=== PATIENT | female | born 1950 | race Caucasian/White ===

== ENCOUNTER 2016-02-21 11:53 | Inpatient (IN) | payer MEDICARE, OTHER ==
[2016-02-21] MEDS ORDERED: IPRATROPIUM-ALBUTEROL 3 ML NEB INHALATION STA (12:08)
[2016-02-21] MEDS ORDERED: SODIUM CHLORIDE 0.9% 1,000 ML IV STA (12:08)
--- NOTE | 2016-02-21 12:26 | ED ---
General Adult HPI - General Chief complaint: Shortness of Breath Stated complaint: COUGH, FAST SHALLOW BREATHING Time Seen by Provider: 02/21/16 12:07 Source: family, RN notes reviewed, old records reviewed Mode of arrival: ambulatory Limitations: physical limitation - History of Present Illness Initial comments: This is a 65-year-old female the ER for evaluation. Patient's poor historian secondary to underlying mental status with nonspeaking. Patient's brought in by caregiver for evaluation of breathing, patient does not seem to be breathing per normal. History is obtained from caregiver and patient's chart - Related Data Home Medications Medication Instructions Recorded Confirmed Loratadine [Claritin] 10 mg PO DAILY@0800 02/19/14 02/21/16 Omeprazole [PriLOSEC] 20 mg PO AC-BRKFST 02/19/14 02/21/16 QUEtiapine [SEROquel] 200 mg PO BID@1200,1600 02/19/14 02/21/16 QUEtiapine [SEROquel] 400 mg PO HS 02/19/14 02/21/16 Theratab (Multivitamin) 1 tab PO DAILY@0800 02/19/14 02/21/16 Atorvastatin [Lipitor] 20 mg PO HS 02/21/16 02/21/16 Cholecalciferol [Vitamin D3] 1,000 unit PO DAILY@0800 02/21/16 02/21/16 Gavilax Powder 17 gram PO DAILY@1200 02/21/16 02/21/16 L.acidoph,Paracasei, B.lactis 2 cap PO DAILY@1200 02/21/16 02/21/16 [Probiotic] LORazepam [Ativan] 0.5 mg PO BID@0800,1600 02/21/16 02/21/16 LORazepam [Ativan] 0.5 mg PO HS 02/21/16 02/21/16 Levothyroxine Sodium [Synthroid] 25 mcg PO DAILY@0700 02/21/16 02/21/16 Linaclotide [Linzess] 145 mcg PO DAILY@0800 02/21/16 02/21/16 [place] Carbonate 150 mg PO HS 02/21/16 02/21/16 [place] Carbonate 300 mg PO QA 02/21/16 02/21/16 Metoprolol Succinate [Toprol XL] 50 mg PO DAILY@0800 02/21/16 02/21/16 Montelukast [Singulair] 10 mg PO DAILY@1600 02/21/16 02/21/16 OXcarbazepine [Trileptal] 900 mg PO BID 02/21/16 02/21/16 Renal Caps 1 cap PO DAILY@0700 02/21/16 02/21/16 Allergies Allergy/AdvReac Type Severity Reaction Status Date / Time lamotrigine [From Lamictal] Allergy Unknown Verified 02/21/16 13:48 amoxicillin trihydrate AdvReac Unknown Verified 02/21/16 13:48 [From Augmentin] benztropine mesylate AdvReac Unknown Verified 02/21/16 13:48 [From Cogentin] levofloxacin [From Levaquin] AdvReac Unknown Verified 02/21/16 13:48 potassium clavulanate AdvReac Unknown Verified 02/21/16 13:48 [From Augmentin] Review of Systems ROS Statement: Those systems with pertinent positive or pertinent negative responses have been documented in the HPI. ROS Other: All systems not noted in ROS Statement are negative. Past Medical History Past Medical History: GERD/Reflux, Hypertension, Seizure Disorder Additional Past Medical History / Comment(s): prolapsed rectum, kidney stone, frequent ear infections, bowel obstructions, pancreatitis, scarlet fever, tardive dyskinesia History of Any Multi-Drug Resistant Organisms: None Reported Past Surgical History: Bladder Surgery, Bowel Resection, Cholecystectomy Past Psychological History: No Psychological Hx Reported, Bipolar, Schizoaffective Disorder Smoking Status: Never smoker Past Alcohol Use History: None Reported Past Drug Use History: None Reported General Exam Limitations: physical limitation Course Vital Signs 02/21/16 12:00 Temperature 97.3 F L Pulse Rate 95 Respiratory 28 H Rate Blood Pressure 133/64 O2 Sat by Pulse 93 L Oximetry - Reevaluation(s) Reevaluation #1: 02/21/16 13:58 Patient is difficult to cooperate with breathing treatments secondary to mental status Reevaluation #2: 02/21/16 13:58 The patient remains tachypneic short of breath with positive pneumonia on x-ray EKG Findings - EKG Comments: EKG Findings:: EKG shows normal sinus rhythm 94, PA 168, QRS 80, QTC 450 Medical Decision Making - Medical Decision Making 65-year-old female to ER for evaluation. This patient is safe for evaluation of shortness of breath cough and congestion, positive pneumonia or patient will be admitted for further evaluation and treatment of pneumonia, breathing treatments, IV antibiotics, patient is poorly compliant secondary to underlying altered mental status, developed mild lower - Radiology Data Radiology results: report reviewed (Chest x-ray two-view is positive for pneumonia), image reviewed Disposition Clinical Impression: Community acquired pneumonia Disposition: ADMITTED IP TO [facility] Condition: Fair Referrals: Terrell Romero MD [Primary Care Provider] - 1-2 days
--- NOTE | 2016-02-21 13:54 | XR ---
EXAMINATION TYPE: XR chest 2V DATE OF EXAM: 02/21/2016 1:41 PM COMPARISON: 05/28/2013 INDICATION: Difficulty breathing TECHNIQUE: Frontal and lateral views of the chest are obtained. FINDINGS: The heart size is normal. The pulmonary vasculature is normal. There is a right lower lobe consolidation. Correlate for pneumonia. IMPRESSION: 1. Right lower lobe pneumonia.
[2016-02-21] MEDS ORDERED: PNEUMONIA PROTOCOL UTILIZED 1 EACH MISC PO PRN (13:56)
[2016-02-21] MEDS ORDERED: AZITHROMYCIN 500 MG in SODIUM CHLORIDE 0.9% 250 ML IVPB STA (13:57)
[2016-02-21 15:26] LABS: ALT 34 U/L (9-52); AST 28 U/L (14-36); Alkaline Phosphatase 134 U/L (38-126); Anion Gap 13 mmol/L; Blood Urea Nitrogen 33 mg/dL (7-17); Calcium 10.1 mg/dL (8.4-10.2); Carbon Dioxide 21 mmol/L (22-30); Chloride 104 mmol/L (98-107); Glucose 114 mg/dL (74-99); INR 1.1 (<1.1); Magnesium 1.9 mg/dL (1.6-2.3); Non-African American GFR(MDRD) 55 (>60 ml/min/1.73 sqM); Partial Thromboplastin Time 26.1 sec (22.0-30.0); Potassium 4.4 mmol/L (3.5-5.1); Sodium 138 mmol/L (137-145); Total Bilirubin 0.4 mg/dL (0.2-1.3); Total Protein 6.7 g/dL (6.3-8.2)
[2016-02-21 15:30] LABS: CH 30.6; CHCM 33.1; HCT 38.5 % (34.0-46.0); HDW 2.49; HGB 12.5 gm/dL (11.4-16.0); Immature Gran Flag Marked; MCHC 32.4 g/dL (31.0-37.0); MCV 92.8 fL (80.0-100.0); Mean Platelet Volume 7.2; RBC 4.15 m/uL (3.80-5.40); RDW 12.7 % (11.5-15.5); WBC (Perox) 11.47
[2016-02-21 15:36] LABS: Creatine Kinase 145 U/L (30-135)
[2016-02-21 15:49] LABS: Troponin I <0.012 ng/mL (0.000-0.034)
[2016-02-21 15:53] LABS: Creatine Kinase MB 2.5 ng/mL (0.0-2.4)
[2016-02-21 16:05] LABS: Add Differential Manual Differential
[2016-02-21 16:08] LABS: Nucleated Red Blood Cells 0 /100 WBC (0-0); Total Cells Counted 100
[2016-02-21] MEDS: IPRATROPIUM-ALBUTEROL 3 ML NEB INHALATION SCH ×2 (16:08→19:24)
[2016-02-21 16:09] LABS: Manual Review Performed; RBC Morphology Normal
[2016-02-21] MEDS ORDERED: SODIUM CHLORIDE 0.9% 500 ML IV ONE (16:13)
[2016-02-21] MEDS ORDERED: ACETAMINOPHEN TAB 500 MG TAB PO STA (16:21)
[2016-02-21] MEDS ORDERED: IBUPROFEN 600 MG TAB PO STA (16:21)
[2016-02-21] MEDS: AZITHROMYCIN 500 MG TAB PO STA ×2 (16:31→16:32)
[2016-02-21] MEDS: SODIUM CHLORIDE 0.9% 2,000 ML IV ONE ×2 (17:01→17:48)
[2016-02-21] MEDS: SODIUM CHLORIDE 0.9% 1,000 ML IV SCH ×2 (17:43→23:46)
[2016-02-21] MEDS ORDERED: LORazepam 0.5 MG TAB PO ONE (19:45)
[2016-02-21] MEDS: ATORVASTATIN 20 MG TAB PO SCH (20:33)
[2016-02-21] MEDS: QUEtiapine 400 MG TAB PO SCH (20:33)
[2016-02-21] MEDS: OXcarbazepine 300 MG TAB PO SCH (20:34)
[2016-02-21] MEDS: LITHIUM CARBONATE 150 MG CAP PO SCH (20:34)
[2016-02-21] MEDS: LORazepam 0.5 MG TAB PO SCH (20:36)
--- NOTE | 2016-02-22 07:43 | XR ---
EXAMINATION TYPE: XR chest 2V DATE OF EXAM: 02/22/2016 7:19 AM COMPARISON: 02/21/2016 HISTORY: Shortness of breath TECHNIQUE: Frontal and lateral views of the chest are obtained. FINDINGS: Scattered senescent parenchymal changes noted. Hyperinflation compatible with COPD. Airspace infiltrate is again noted throughout the right lung greatest at the right lung base. The lef t lung is clear. Heart size is stable. Mediastinal structures are stable and grossly unremarkable. No evidence for hilar prominence. Degenerative changes dorsal spine. IMPRESSION: 1. Airspace infiltrate is again noted throughout the right lung greatest at the right lung base.
--- NOTE | 2016-02-22 08:02 | HP ---
DATE OF ADMISSION: 02/21/2016 PRESENTING COMPLAINT: Short of breath. HISTORY OF PRESENTING COMPLAINT: This is a 65-year-old patient with rather extensive medical history that includes GERD, hypertension, seizure disorder, prolapsed rectum, kidney stones. These are all stable. The patient also has got bipolar schizoaffective disorder and autism. Patient at the age of 1 had high fever, and measles and then patient stopped speaking. Since then, the patient was a resident of [facility]. Patient presented with shortness of breath found to have a fever, pneumonia, was hypoxic in the ER admitted for the same. Like said, patient ( ) not able to give any history. Review of systems cannot be done as patient cannot speak. PAST MEDICAL HISTORY: GERD, hypertension, seizure disorder, prolapsed rectum, kidney stones, bowel obstruction in the past, pancreatitis, tardive dyskinesia. PAST SURGICAL HISTORY: Bladder surgery, bowel resection, cholecystectomy. Past psych history is schizoaffective disorder, bipolar, autism. Additional past medical history, the patient had high fever and measles at age of 1 after which patient stopped speaking. SOCIAL HISTORY: Patient got a retirement called [employer], telephone number [phone]. Patient is normally needs to be supervised. No smoking. FAMILY HISTORY: Patient cannot tell. HOME MEDICATIONS: 1. Multivitamin 1 tablet p.o. daily at 8. 2. Renal caps 1 capsule p.o. daily. 3. Seroquel 400 mg q.h.s. 4. Seroquel 200 mg p.o. b.i.d. 5. Prilosec 20 mg with breakfast. 6. Trileptal 900 mg p.o. b.i.d. 7. Singulair 10 mg p.o. daily at 4 p.m. 8. Toprol XL 50 mg at 8:00 p.m. 9. Claritin 10 mg p.o. daily at 8 a.m. 10. Valmy 150 mg q.h.s., 300 mg in morning. 11. Linzess 145 mcg p.o. daily. 12. Synthroid 25 mcg p.o. daily. 13. Ativan 0.5 p.o. b.i.d. and 0.5 mg p.o. q.h.s. 14. Probiotic 2 capsules p.o. daily. 15. GaviLAX 17 grams p.o. daily at noon. 16. Vitamin D3,1000 units p.o. daily. 17. Lipitor 20 mg q.h.s. Allergies to LAMICTAL, AUGMENTIN, COGENTIN and LEVAQUIN. On examination T-max is 101.6, pulse 105, respirations 20, blood pressure 141/64, pulse ox 89% on room air. GENERAL APPEARANCE: Average built, lying in bed, not in distress. EYES: Pupils equal. Conjunctivae normal. HENT: External appearance of nose and ears normal. Oral cavity unable. NECK: JVD not raised. Mass not palpable. RESPIRATORY: Effort normal. LUNGS: Some basal crackles. CARDIOVASCULAR: First and second sounds normal. No edema. ABDOMEN: Soft, nontender. Liver and spleen not palpable. LYMPHATIC: No lymph node palpable in neck or axillae. PSYCHIATRY: Unable to assess. NEUROLOGICAL: Patient is moving all 4 limbs, not sure if patient is really following commands. White count 11, hemoglobin 12.5. Potassium 4.4. BUN 33, creatinine 1.0. Troponin less than 0.012. ProBNP 563. Chest x-ray reviewed by me shows extensive infiltrates upper right middle lobe. ASSESSMENT: 1. Multilobar pneumonia, suspect gram-negative organism, present on admission. 2. Gastroesophageal reflux disease. 3. Hypertension. 4. Seizure disorder. 5. Kidney stones, asymptomatic. 6. Schizoaffective disorder PLAN: The patient is started on IV ceftriaxone and Zithromax. Home medications are resumed. Lovenox for DVT prophylaxis. Given previous history will get a sitter for the patient.
[2016-02-22] MEDS: IPRATROPIUM-ALBUTEROL 3 ML NEB INHALATION SCH ×4 (08:15→19:30)
[2016-02-22] MEDS: PANTOPRAZOLE 40 MG TABLET PO SCH (08:18)
[2016-02-22] MEDS: LITHIUM CARBONATE 300 MG CAP PO SCH (08:18)
[2016-02-22] MEDS: OXcarbazepine 300 MG TAB PO SCH ×2 (08:18→21:56)
[2016-02-22] MEDS: LEVOTHYROXINE 25 MCG TAB PO SCH (08:18)
[2016-02-22] MEDS: METOPROLOL SUCCINATE (ER) 50 MG TAB.ER.24H PO SCH (08:18)
[2016-02-22] MEDS: ENOXAPARIN 40 MG/0.4 ML SYRINGE SQ SCH (08:18)
[2016-02-22] MEDS: MULTIVITAMINS, THERA 1 EACH TAB PO SCH (08:18)
[2016-02-22] MEDS: LORazepam 0.5 MG TAB PO SCH ×3 (08:19→21:58)
[2016-02-22] MEDS: FOLIC ACID-VIT B COMPLEX-VIT C 1 CAP PO SCH (08:19)
[2016-02-22] MEDS: QUEtiapine 200 MG TAB PO SCH ×2 (12:12→17:19)
[2016-02-22] MEDS: POLYETHYLENE GLYCOL 3350 17 GM POWD.PACK PO SCH (12:12)
[2016-02-22] MEDS: SODIUM CHLORIDE 0.9% 1,000 ML IV SCH ×2 (14:48→20:30)
[2016-02-22] MEDS ORDERED: cefTRIAXone 1,000 MG in SODIUM CHLORIDE 0.9% 100 ML IVPB SCH (15:00)
[2016-02-22] MEDS ORDERED: AZITHROMYCIN 500 MG in SODIUM CHLORIDE 0.9% 250 ML IVPB SCH (16:00)
[2016-02-22] MEDS: MONTELUKAST 10 MG TAB PO SCH (17:19)
--- NOTE | 2016-02-22 17:49 | PN ---
DATE OF SERVICE: 02/22/2016 PRESENTING COMPLAINT: Short of breath. INTERVAL HISTORY: This patient with multiple problems presents with multilobar pneumonia, lying in bed, appears a bit better, has a sitter. Patient did tolerate some breakfast. Patient also not able to communicate. Review of systems cannot be done as patient currently does not speak. Current medications are reviewed that include IV ceftriaxone and Zithromax. On exam, temperature 97.9, pulse 101, respirations 21, blood pressure 120/58, pulse ox 90% on room air. GENERAL APPEARANCE: Lying in bed, awake. EYES: Pupils equal normal. NECK: JVD not raised. Mass not palpable. RESPIRATORY: Effort normal. LUNGS: Some basal crackles. CARDIOVASCULAR: First and second sounds normal. No edema. ABDOMEN: Soft, nontender. Liver and spleen not palpable. NEUROLOGICAL: Moving her limbs. Barely following commands. INVESTIGATIONS: Lactic acid 0.8. ASSESSMENT: 1. Multilobar pneumonia, suspect gram-negative organism, slow to respond with lactic acidosis, on presentation. 2. Gastroesophageal reflux disease. 3. Hypertension. 4. Seizure disorder. 5. Kidney stones asymptomatic. 6. ( ) disorder. 7. Dysarthria, chronic. PLAN: Continue current medication and treatment plan. Will follow.
[2016-02-22] MEDS: LITHIUM CARBONATE 150 MG CAP PO SCH (21:56)
[2016-02-22] MEDS: QUEtiapine 400 MG TAB PO SCH (21:56)
[2016-02-22] MEDS: ATORVASTATIN 20 MG TAB PO SCH (21:56)
[2016-02-23] MEDS: SODIUM CHLORIDE 0.9% 1,000 ML IV SCH (06:39)
[2016-02-23] MEDS: LEVOTHYROXINE 25 MCG TAB PO SCH (06:40)
[2016-02-23] MEDS: FOLIC ACID-VIT B COMPLEX-VIT C 1 CAP PO SCH (06:40)
[2016-02-23] MEDS: PANTOPRAZOLE 40 MG TABLET PO SCH (06:40)
[2016-02-23] MEDS: METOPROLOL SUCCINATE (ER) 50 MG TAB.ER.24H PO SCH (08:02)
[2016-02-23] MEDS: MULTIVITAMINS, THERA 1 EACH TAB PO SCH (08:02)
[2016-02-23] MEDS: LITHIUM CARBONATE 300 MG CAP PO SCH (08:02)
[2016-02-23] MEDS: OXcarbazepine 300 MG TAB PO SCH ×2 (08:02→20:42)
[2016-02-23] MEDS: LORazepam 0.5 MG TAB PO SCH ×3 (08:03→20:42)
[2016-02-23] MEDS: ENOXAPARIN 40 MG/0.4 ML SYRINGE SQ SCH (08:03)
[2016-02-23 08:15] LABS: Basophils % (A) 0 %; CH 30.1; CHCM 31.1; Eosinophils # (A) 0.2 k/uL (0-0.7); Eosinophils % (A) 2 %; HCT 32.6 % (34.0-46.0); HDW 2.51; HGB 10.2 gm/dL (11.4-16.0); Hypochromasia Slight; Luc # (Auto) 0.13; Luc % (Auto) 1; Lymphocytes # (A) 1.1 k/uL (1.0-4.8); Lymphocytes % (A) 11 %; MCH 30.3 pg (25.0-35.0); MCHC 31.2 g/dL (31.0-37.0); MCV 97.2 fL (80.0-100.0); Mean Platelet Volume 7.7; Monocytes # (A) 0.4 k/uL (0-1.0); Monocytes % (A) 4 %; Neutrophils # (A) 8.2 k/uL (1.3-7.7); Neutrophils % (A) 82 %; RBC 3.35 m/uL (3.80-5.40)
[2016-02-23 08:25] LABS: Anion Gap 11 mmol/L; Blood Urea Nitrogen 14 mg/dL (7-17); Carbon Dioxide 15 mmol/L (22-30); Chloride 118 mmol/L (98-107); Glucose 114 mg/dL (74-99); Non-African American GFR(MDRD) >60 (>60 ml/min/1.73 sqM); Potassium 4.4 mmol/L (3.5-5.1); Sodium 144 mmol/L (137-145)
[2016-02-23] MEDS: IPRATROPIUM-ALBUTEROL 3 ML NEB INHALATION SCH ×4 (09:47→21:07)
[2016-02-23] MEDS: QUEtiapine 200 MG TAB PO SCH ×2 (13:01→16:44)
[2016-02-23] MEDS: POLYETHYLENE GLYCOL 3350 17 GM POWD.PACK PO SCH (13:01)
[2016-02-23] MEDS: guaiFENesin 600 MG TABLET.ER PO SCH ×2 (15:43→20:42)
[2016-02-23] MEDS ORDERED: AZITHROMYCIN 500 MG TAB PO SCH (16:00)
[2016-02-23] MEDS: PIPERACILLIN-TAZOBACTAM 3.375 GM in DEXTROSE/WATER 1 50ML.BAG IVPB SCH ×2 (16:43→23:14)
[2016-02-23] MEDS: MONTELUKAST 10 MG TAB PO SCH (16:43)
--- NOTE | 2016-02-23 17:50 | P.CNPUL ---
History of Present Illness Consult date: 02/23/16 Requesting physician: Mario Chamberlain Reason for consult: pneumonia Chief complaint: Shortness of breath History of present illness: this is a 65-year-old female with history of multiple medical problems, patient is known to have history of bipolar disorder, schizoaffective disorder, hypertension, seizure disorder, prolapsed rectum, and since the patient was 1 years old, she developed a picture of severe encephalitis ,the patient went aphasic and has not been able to verbalize since. Patient remains at [facility]. On 02/21/2016, patient was brought into the ER with mostly complaints of shortness of breath. Chest x-ray upon presentation showed extensive pneumonia involving the right lung especially the right lobe and the right lower lobe. No documented history of aspiration but the patient eats and Gobbles food down quite fast normally. considering this presentation, patient is not an ideal risk for aspiration pneumonia. Swallow evaluation is spending, in the meantime patient seems to be on Broad-spectrum antibiotics empirically for pneumonia. Again not much history could be obtained from the patient since the patient is aphasic and she seems to be confused. Review of Systems ROS unobtainable: due to mental status Past Medical History Past Medical History: GERD/Reflux, Hypertension, Seizure Disorder Additional Past Medical History / Comment(s): prolapsed rectum, kidney stone, frequent ear infections, bowel obstructions, pancreatitis, scarlet fever, tardive dyskinesia History of Any Multi-Drug Resistant Organisms: None Reported Past Surgical History: Bladder Surgery, Bowel Resection, Cholecystectomy Past Anesthesia/Blood Transfusion Reactions: No Reported Reaction Past Psychological History: No Psychological Hx Reported, Bipolar, Schizoaffective Disorder Additional Psychological History / Comment(s): autism-per caregiver.pt had hx high fever and measels at age 1,after it subsided pt stopped speaking. PT LIVES AT [facility] [employer] [phone].[facility] staff remain in a close proximity of pt at all times.don't leave unattended in bath or shower.pt places self at risk when she picks at herself or bangs arms on something. Smoking Status: Never smoker Past Alcohol Use History: None Reported Past Drug Use History: None Reported - Past Family History Father Family Medical History: Unable to Obtain Mother Family Medical History: Unable to Obtain Medications and Allergies Home Medications Medication Instructions Recorded Confirmed Type Loratadine [Claritin] 10 mg PO DAILY@0800 02/19/14 02/21/16 History Omeprazole [PriLOSEC] 20 mg PO AC-BRKFST 02/19/14 02/21/16 History QUEtiapine [SEROquel] 200 mg PO BID@1200,1600 02/19/14 02/21/16 History QUEtiapine [SEROquel] 400 mg PO HS 02/19/14 02/21/16 History Theratab (Multivitamin) 1 tab PO DAILY@0800 02/19/14 02/21/16 History Atorvastatin [Lipitor] 20 mg PO HS 02/21/16 02/21/16 History Cholecalciferol [Vitamin D3] 1,000 unit PO DAILY@0800 02/21/16 02/21/16 History Gavilax Powder 17 gram PO DAILY@1200 02/21/16 02/21/16 History L.acidoph,Paracasei, B.lactis 2 cap PO DAILY@1200 02/21/16 02/21/16 History [Probiotic] LORazepam [Ativan] 0.5 mg PO BID@0800,1600 02/21/16 02/21/16 History LORazepam [Ativan] 0.5 mg PO HS 02/21/16 02/21/16 History Levothyroxine Sodium [Synthroid] 25 mcg PO DAILY@0700 02/21/16 02/21/16 History Linaclotide [Linzess] 145 mcg PO DAILY@0800 02/21/16 02/21/16 History [place] Carbonate 150 mg PO HS 02/21/16 02/21/16 History [place] Carbonate 300 mg PO QA 02/21/16 02/21/16 History Metoprolol Succinate [Toprol XL] 50 mg PO DAILY@0800 02/21/16 02/21/16 History Montelukast [Singulair] 10 mg PO DAILY@1600 02/21/16 02/21/16 History OXcarbazepine [Trileptal] 900 mg PO BID 02/21/16 02/21/16 History Renal Caps 1 cap PO DAILY@0700 02/21/16 02/21/16 History Allergies Allergy/AdvReac Type Severity Reaction Status Date / Time lamotrigine [From Lamictal] Allergy Unknown Verified 02/21/16 13:48 amoxicillin trihydrate AdvReac Unknown Verified 02/21/16 13:48 [From Augmentin] benztropine mesylate AdvReac Unknown Verified 02/21/16 13:48 [From Cogentin] levofloxacin [From Levaquin] AdvReac Unknown Verified 02/21/16 13:48 potassium clavulanate AdvReac Unknown Verified 02/21/16 13:48 [From Augmentin] Physical Exam Vitals: Vital Signs Temp Pulse Resp BP Pulse Ox 02/23/16 15:00 95 21 126/67 91 L 02/23/16 07:00 97.2 F L 90 20 133/69 92 L 02/22/16 23:00 97.2 F L 95 20 115/51 92 L Intake and Output 02/23/16 02/23/16 02/23/16 06:59 14:59 22:59 Intake Total 200 Balance 200 Intake: Oral 200 Other: # Voids 1 3 physical examination revealed a 65-year-old female in no distress. HEENT: Neck supple no neck masses no JVD no thyromegaly. Chest: Crackles mostly on the right base, left side is relatively clear Cardiac: Normal S1 and S2, no gallops. Abdomen: Soft nontender thyromegaly no rebound Extremities: No clubbing edema or cyanosis. Neurologic: Patient is awake, confused, aphasic, extremely difficult to communicate with the patient. Results - Laboratory Findings CBC and BMP: 02/23/16 07:46 02/23/16 07:46 PT/INR, D-dimer PT 11.0 sec (9.0-12.0) 02/21/16 14:54 INR 1.1 (<1.1) 02/21/16 14:54 Abnormal lab findings: Abnormal Labs 02/21/16 02/21/16 02/21/16 14:52 14:54 14:54 WBC 11.0 H RBC Hgb Hct Neutrophils # Neutrophils # (Manual) 9.7 H Lymphocytes # (Manual) 0.8 L Chloride Carbon Dioxide 21 L BUN 33 H Glucose 114 H Plasma Lactic Acid Marc 2.2 H* Alkaline Phosphatase 134 H Total Creatine Kinase CK-MB (CK-2) 02/21/16 02/23/16 02/23/16 14:54 07:46 07:46 WBC RBC 3.35 L Hgb 10.2 L Hct 32.6 L Neutrophils # 8.2 H Neutrophils # (Manual) Lymphocytes # (Manual) Chloride 118 H Carbon Dioxide 15 L BUN Glucose 114 H Plasma Lactic Acid Marc Alkaline Phosphatase Total Creatine Kinase 145 H CK-MB (CK-2) 2.5 H* - Diagnostic Findings Chest x-ray: image reviewed ( Extensive pneumonia involving the right lung was noted) Assessment and Plan Plan: impression: 1 acute right lung pneumonia involving mostly the right middle lobe and right lower lobe 2 multiple comorbidities including schizoaffective disorder, seizure disorder, hypertension, GERD, and 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 Recommendation: Continue present course of antibiotics, however the patient failed the swallow evaluation, may have to consider adding clindamycin since the patient is allergic to penicillin and we cannot use Zosyn. Swallow evaluation is pending and will continue to follow. Clinically, the patient seems to be doing better than expected considering the extensive pneumonic process involving the right lung. If the patient shows any signs of deterioration, I would consider bronchoscopy. We will continue to follow Time with Patient: Greater than 30
--- NOTE | 2016-02-23 18:21 | PN ---
DATE OF SERVICE: 02/23/2016 PRESENTING COMPLAINT: Short of breath. INTERVAL HISTORY: Patient presented with multilobar pneumonia. Did tolerate some breakfast. Lying in bed. Patient does not talk; difficult to assess. Otherwise, lying in bed, rather comfortable. Review of systems could not be obtained. Patient does not speak. Current medications include IV ceftriaxone and Zithromax. On examination, temperature 97.2, pulse 90, respiration 20, blood pressure 138/69, pulse ox 92% on room air. GENERAL APPEARANCE: Lying in bed, awake. EYES: Pupils equal. Conjunctivae normal. NECK: JVD not raised. Mass not palpable. RESPIRATORY: Effort increased. LUNGS: Right basal crackles. CARDIOVASCULAR: First and second sounds normal. No edema. ABDOMEN: Soft, non-tender. Liver and spleen not palpable. NEUROLOGICAL: Moving all limbs. Does not speak. INVESTIGATIONS: White count 10, hemoglobin 10.2, potassium 4.4. Chest x-ray from yesterday shows significant infiltrates. ASSESSMENT: 1. Multilobar pneumonia; suspect Gram-negative organism, slow to respond, with lactic acidosis on presentation. 2. Gastroesophageal reflux disease. 3. Hypertension. 4. Seizure disorder. 5. Kidney stones, asymptomatic. 6. Dysarthria, chronic. 7. Schizoaffective disorder. PLAN: At this point will discontinue patient's Zithromax and add Zosyn. Await input from Pulmonary. Will discontinue the IV fluids.
[2016-02-23] MEDS: QUEtiapine 400 MG TAB PO SCH (20:42)
[2016-02-23] MEDS: ATORVASTATIN 20 MG TAB PO SCH (20:42)
[2016-02-23] MEDS: LITHIUM CARBONATE 150 MG CAP PO SCH (20:42)
[2016-02-24] MEDS: NON-FORMULARY DRUG (Linaclotide [Linzess] 145 MCG) PO SCH ×2 (07:28→07:29)
[2016-02-24] MEDS: IPRATROPIUM-ALBUTEROL 3 ML NEB INHALATION SCH ×4 (07:54→19:33)
[2016-02-24] MEDS: OXcarbazepine 300 MG TAB PO SCH ×2 (08:31→22:52)
[2016-02-24] MEDS: LEVOTHYROXINE 25 MCG TAB PO SCH (08:31)
[2016-02-24] MEDS: FOLIC ACID-VIT B COMPLEX-VIT C 1 CAP PO SCH (08:31)
[2016-02-24] MEDS: METOPROLOL SUCCINATE (ER) 50 MG TAB.ER.24H PO SCH (08:33)
[2016-02-24] MEDS: LORazepam 0.5 MG TAB PO SCH ×3 (08:34→22:50)
[2016-02-24] MEDS: MULTIVITAMINS, THERA 1 EACH TAB PO SCH (08:34)
[2016-02-24] MEDS: guaiFENesin 600 MG TABLET.ER PO SCH ×2 (08:34→22:51)
[2016-02-24] MEDS: ENOXAPARIN 40 MG/0.4 ML SYRINGE SQ SCH (08:34)
[2016-02-24] MEDS: PANTOPRAZOLE 40 MG TABLET PO SCH (08:34)
[2016-02-24] MEDS: PIPERACILLIN-TAZOBACTAM 3.375 GM in DEXTROSE/WATER 1 50ML.BAG IVPB SCH ×2 (08:34→17:39)
[2016-02-24] MEDS: LITHIUM CARBONATE 300 MG CAP PO SCH (08:35)
--- NOTE | 2016-02-24 13:02 | P.PN ---
Subjective Principal diagnosis: Acute right sided pneumonia, most likely aspiration in nature. this is a 65-year-old female with history of multiple medical problems, patient is known to have history of bipolar disorder, schizoaffective disorder, hypertension, seizure disorder, prolapsed rectum, and since the patient was 1 years old, she developed a picture of severe encephalitis ,the patient went aphasic and has not been able to verbalize since. Patient remains at [facility]. On 02/21/2016, patient was brought into the ER with mostly complaints of shortness of breath. Chest x-ray upon presentation showed extensive pneumonia involving the right lung especially the right lobe and the right lower lobe. No documented history of aspiration but the patient eats and Gobbles food down quite fast normally. considering this presentation, patient is not an ideal risk for aspiration pneumonia. Swallow evaluation is spending, in the meantime patient seems to be on Broad-spectrum antibiotics empirically for pneumonia. Again not much history could be obtained from the patient since the patient is aphasic and she seems to be confused. Patient was reevaluated today on 02/24/2016, seems to be about the same. No cough no wheezing no shortness of breath, and her physical findings are practically about the same. Patient is being evaluated by speech therapy for swallow evaluation. Results of that are pending. Her labs showed the PEEP cigar of 10 hemoglobin of 10.2 her electrolytes showed a hyperchloremic metabolic acidosis/non-anion gap metabolic acidosis. Objective - Vital Signs Vital signs: Vital Signs Temp 96.9 F L 02/24/16 07:00 Pulse 91 02/24/16 07:00 Resp 20 02/24/16 07:00 BP 135/71 02/24/16 07:00 Pulse Ox 96 02/24/16 07:00 Intake & Output 02/23/16 02/24/16 02/24/16 18:59 06:59 18:59 Intake Total 200 Balance 200 Intake: Oral 200 Other: Voiding Method Toilet # Voids 3 1 - Exam physical examination revealed a 65-year-old female in no distress. HEENT: Neck supple no neck masses no JVD no thyromegaly. Chest: Crackles mostly on the right base, left side is relatively clear Cardiac: Normal S1 and S2, no gallops. Abdomen: Soft nontender thyromegaly no rebound Extremities: No clubbing edema or cyanosis. Neurologic: Patient is awake, confused, aphasic, extremely difficult to communicate with the patient. 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 Recommendation: Continue present course of antibiotics, however the patient failed the swallow evaluation, may have to consider adding clindamycin since the patient is allergic to penicillin and we cannot use Zosyn. Swallow evaluation is pending and will continue to follow. Clinically, the patient seems to be doing better than expected considering the extensive pneumonic process involving the right lung. If the patient shows any signs of deterioration, I would consider bronchoscopy. We will continue to follow Time with Patient: Less than 30
[2016-02-24] MEDS: POLYETHYLENE GLYCOL 3350 17 GM POWD.PACK PO SCH (14:29)
[2016-02-24] MEDS: QUEtiapine 200 MG TAB PO SCH ×2 (14:38→17:36)
[2016-02-24] MEDS: MONTELUKAST 10 MG TAB PO SCH (17:36)
--- NOTE | 2016-02-24 22:45 | PN ---
DATE OF SERVICE: 02/24/2016 PRESENTING COMPLAINT: Cough. INTERVAL HISTORY: Patient presented with multilobar pneumonia; appears a bit less congested. Follows commands but does not really talk. Per the aide, patient is eating all the meals. No major coughing. Review of systems could not be done. Current medications are reviewed that include IV Zosyn. On examination, temperature 98.4, pulse 86, respiration 19, blood pressure 148/78, pulse ox 91% on room air. GENERAL APPEARANCE: Sitting up. Comfortable. EYES: Pupils equal. Conjunctivae normal. NECK: JVD not raised. Mass not palpable. RESPIRATORY: Effort increased. LUNGS: Decreased right-sided crackles. CARDIOVASCULAR: First and second sounds normal. No edema. ABDOMEN: Soft, non-tender. Liver and spleen not palpable. NEUROLOGICAL: Moving all 4 limbs. PSYCHIATRY: Patient does follow commands. INVESTIGATIONS: White count 10, hemoglobin 10.2. Potassium 4.2. BUN and creatinine are normal. ASSESSMENT: 1. Multilobar pneumonia; suspect Gram-negative organism. Slow to respond, with lactic acidosis on presentation. Aspiration is a possibility. 2. Chronic tardive dyskinesia. 3. Gastroesophageal reflux disease. 4. Hypertension. 5. Chronic seizure disorder. 6. Kidney stones, asymptomatic. 7. Dysarthria, chronic. 8. Schizoaffective disorder, chronic. PLAN: Continue current medication and treatment plan. Patient clinically seems to be getting better.
[2016-02-24] MEDS: LITHIUM CARBONATE 150 MG CAP PO SCH (22:51)
[2016-02-24] MEDS: QUEtiapine 400 MG TAB PO SCH (22:51)
[2016-02-24] MEDS: ATORVASTATIN 20 MG TAB PO SCH (22:52)
[2016-02-25] MEDS: PIPERACILLIN-TAZOBACTAM 3.375 GM in DEXTROSE/WATER 1 50ML.BAG IVPB SCH ×3 (01:13→16:22)
[2016-02-25] MEDS: FOLIC ACID-VIT B COMPLEX-VIT C 1 CAP PO SCH (07:51)
[2016-02-25] MEDS: METOPROLOL SUCCINATE (ER) 50 MG TAB.ER.24H PO SCH (07:51)
[2016-02-25] MEDS: MULTIVITAMINS, THERA 1 EACH TAB PO SCH (07:51)
[2016-02-25] MEDS: LEVOTHYROXINE 25 MCG TAB PO SCH (07:51)
[2016-02-25] MEDS: LORazepam 0.5 MG TAB PO SCH ×3 (07:51→20:51)
[2016-02-25] MEDS: ENOXAPARIN 40 MG/0.4 ML SYRINGE SQ SCH (07:51)
[2016-02-25] MEDS: PANTOPRAZOLE 40 MG TABLET PO SCH (07:51)
[2016-02-25] MEDS: LITHIUM CARBONATE 300 MG CAP PO SCH (07:52)
[2016-02-25] MEDS: guaiFENesin 600 MG TABLET.ER PO SCH ×2 (07:52→20:52)
[2016-02-25] MEDS: OXcarbazepine 300 MG TAB PO SCH ×2 (07:53→20:50)
[2016-02-25] MEDS: IPRATROPIUM-ALBUTEROL 3 ML NEB INHALATION SCH ×4 (09:18→20:10)
[2016-02-25] MEDS: POLYETHYLENE GLYCOL 3350 17 GM POWD.PACK PO SCH (12:49)
[2016-02-25] MEDS: QUEtiapine 200 MG TAB PO SCH ×2 (12:51→16:51)
[2016-02-25] MEDS: SODIUM BICARBONATE TAB 650 MG TAB PO SCH ×2 (13:30→20:50)
--- NOTE | 2016-02-25 15:33 | P.PN ---
Subjective This is a 65-year-old female with history of multiple medical problems, patient is known to have history of bipolar disorder, schizoaffective disorder, hypertension, seizure disorder, prolapsed rectum, and since the patient was 1 years old, she developed a picture of severe encephalitis ,the patient went aphasic and has not been able to verbalize since. Patient remains at [facility]. On 02/21/2016, patient was brought into the ER with mostly complaints of shortness of breath. Chest x-ray upon presentation showed extensive pneumonia involving the right lung especially the right lobe and the right lower lobe. No documented history of aspiration but the patient eats and Gobbles food down quite fast normally. considering this presentation, patient is not an ideal risk for aspiration pneumonia. She is seen again today 02/25/2016 in follow-up. She remains alert and active. She is maintaining good O2 saturations in the low 90s on room air. She has been afebrile. She remains on aspiration precautions. She remains on Zosyn. Objective - Vital Signs Vital signs: Vital Signs Temp 99.9 F H 02/25/16 13:25 Pulse 92 02/25/16 07:00 Resp 20 02/25/16 07:00 BP 121/60 02/25/16 07:00 Pulse Ox 90 L 02/25/16 07:00 Intake & Output 02/24/16 02/25/16 02/25/16 18:59 06:59 18:59 Output Total 1 1 Balance -1 -1 Output: Urine 1 1 Other: Voiding Method Toilet Toilet # Voids 3 2 2 # Bowel Movements 1 1 - Exam GENERAL EXAM: Alert, active, comfortable in no apparent distress. Nonverbal. HEAD: Normocephalic. EYES: Normal reaction of pupils, equal size. NOSE: Clear with pink turbinates. THROAT: No erythema or exudates. NECK: No masses, no JVD. CHEST: No chest wall deformity. LUNGS: Equal air entry with no crackles, wheeze, rhonchi or dullness. CVS: S1 and S2 normal with no audible murmurs, regular rhythm. ABDOMEN: No hepatosplenomegaly, normal bowel sounds, no guarding or rigidity. Extremities: There is no significant peripheral edema. No clubbing, no cyanosis. Peripheral pulses are intact. - Labs CBC & Chem 7: 02/23/16 07:46 02/23/16 07:46 Labs: Microbiology - Last 24 Hours (Table) 02/21/16 14:54 Blood Culture - Preliminary Blood No Growth after 72 hours 02/21/16 14:54 Blood Culture - Preliminary Blood No Growth after 72 hours Assessment and Plan Plan: Impression: #1 Acute right lung pneumonia involving mostly the right middle lobe and right lower lobe. #2 Schizoaffective disorder. #3 Seizure disorder. #4 Hypertension. 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 Plan: The patient was seen and evaluated by Dr. Wise. The patient currently remains stable from the pulmonary standpoint. No signs of worsening hypoxia. We'll hold off on bronchoscopy for now. We'll continue with her current medications. She remains on aspiration precautions. We'll continue to follow.
[2016-02-25] MEDS: CLINDAMYCIN 150 MG CAP PO SCH ×2 (16:51→21:20)
[2016-02-25] MEDS: MONTELUKAST 10 MG TAB PO SCH (16:51)
--- NOTE | 2016-02-25 16:57 | XR ---
EXAMINATION TYPE: XR chest 1V portable DATE OF EXAM: 02/25/2016 4:31 PM HISTORY: Right-sided pneumonia. REFERENCE: Previous study dated 02/22/2016. FINDINGS: There is improved aeration of the right lung. There continues to be some opacity behind the heart on the left. There is mild blunting of both CP angles. I could not exclude small effusions. He art size upper limits of normal. There is a calcified aortopulmonary window lymph node. IMPRESSION: 1. IMPROVED AERATION OF BOTH LUNGS. 2. BORDERLINE CARDIOMEGALY. 3. I CANNOT EXCLUDE SMALL, BILATERAL EFFUSIONS. 4. EVIDENCE OF OLD GRANULOMATOUS DISEASE.
--- NOTE | 2016-02-25 16:57 | PN ---
DATE OF SERVICE: 02/25/2016 PRESENTING COMPLAINT: Cough. INTERVAL HISTORY: The patient does not speak but does follow commands. Presented with multilobar pneumonia. Tolerating a diet. He has got a cough. Lying in bed, comfortable. Review of systems cannot be done. Current medications include IV Zosyn. On examination, temperature 99 rectal, pulse 92, respirations 20, blood pressure 120/60, pulse ox 98% on room air. GENERAL APPEARANCE: Lying in bed, comfortable. Eyes pupils equal, conjunctivae normal. NECK: JVD not raised. Mass not palpable. RESPIRATORY: Effort increased. LUNGS: Decreased breath sounds and basal crackles. CARDIOVASCULAR: First and second sounds normal. No edema. ABDOMEN: Soft, nontender. Liver and spleen not palpable. PSYCHIATRY: Not able to assess. NEUROLOGICAL: Does follow commands but does not speak. ASSESSMENT: 1. Multilobar pneumonia, suspect gram-negative organism, slow to respond with ( ) on presentation: Aspiration still possible. 2. Chronic tardive dyskinesia. 3. Gastroesophageal reflux disease. 4. Hypertension. 5. Chronic seizure disorder. 6. Kidney stones asymptomatic. 7. Dysarthria chronic. 8. Schizoaffective disorder, chronic. PLAN: The patient still having clinical finding on the chest auscultation. We will repeat a chest x-ray in the morning. If it does not get better, patient will definitely need a bronchoscopy with lavage. Repeat a chest x-ray in the morning and repeat labs in the morning.
[2016-02-25] MEDS: ATORVASTATIN 20 MG TAB PO SCH (20:52)
[2016-02-25] MEDS: LITHIUM CARBONATE 150 MG CAP PO SCH (20:52)
[2016-02-25] MEDS: QUEtiapine 400 MG TAB PO SCH (20:52)
[2016-02-26] MEDS: IPRATROPIUM-ALBUTEROL 3 ML NEB INHALATION SCH ×4 (07:55→19:29)
[2016-02-26 08:33] LABS: Basophils # (A) 0.1 k/uL (0-0.2); Basophils % (A) 1 %; CH 30.6; CHCM 33.4; Eosinophils # (A) 0.3 k/uL (0-0.7); Eosinophils % (A) 3 %; HCT 38.1 % (34.0-46.0); HDW 2.51; HGB 12.6 gm/dL (11.4-16.0); Luc % (Auto) 1; Lymphocytes # (A) 1.1 k/uL (1.0-4.8); Lymphocytes % (A) 12 %; MCH 30.4 pg (25.0-35.0); Mean Platelet Volume 8.4; Monocytes # (A) 0.5 k/uL (0-1.0); Monocytes % (A) 6 %; Neutrophils # (A) 6.9 k/uL (1.3-7.7); Neutrophils % (A) 77 %; RBC 4.14 m/uL (3.80-5.40); WBC 8.9 k/uL (3.8-10.6); WBC (Perox) 8.92
[2016-02-26] MEDS: OXcarbazepine 300 MG TAB PO SCH ×2 (08:33→20:04)
[2016-02-26] MEDS: LEVOTHYROXINE 25 MCG TAB PO SCH (08:33)
[2016-02-26] MEDS: METOPROLOL SUCCINATE (ER) 50 MG TAB.ER.24H PO SCH (08:33)
[2016-02-26] MEDS: guaiFENesin 600 MG TABLET.ER PO SCH ×2 (08:33→20:04)
[2016-02-26] MEDS: SODIUM BICARBONATE TAB 650 MG TAB PO SCH ×2 (08:33→20:04)
[2016-02-26] MEDS: LORazepam 0.5 MG TAB PO SCH ×3 (08:33→20:04)
[2016-02-26] MEDS: LITHIUM CARBONATE 300 MG CAP PO SCH (08:33)
[2016-02-26] MEDS: CLINDAMYCIN 150 MG CAP PO SCH ×4 (08:33→20:06)
[2016-02-26] MEDS: PANTOPRAZOLE 40 MG TABLET PO SCH (08:33)
[2016-02-26] MEDS: MULTIVITAMINS, THERA 1 EACH TAB PO SCH (08:34)
[2016-02-26] MEDS: FOLIC ACID-VIT B COMPLEX-VIT C 1 CAP PO SCH (08:34)
[2016-02-26] MEDS: ENOXAPARIN 40 MG/0.4 ML SYRINGE SQ SCH (08:34)
[2016-02-26 08:59] LABS: Anion Gap 14 mmol/L; Blood Urea Nitrogen 24 mg/dL (7-17); Carbon Dioxide 18 mmol/L (22-30); Chloride 110 mmol/L (98-107); Glucose 100 mg/dL (74-99); Non-African American GFR(MDRD) >60 (>60 ml/min/1.73 sqM); Potassium 4.9 mmol/L (3.5-5.1); Sodium 142 mmol/L (137-145)
--- NOTE | 2016-02-26 09:27 | XR ---
EXAMINATION TYPE: XR chest 2V DATE OF EXAM: 02/26/2016 8:17 AM COMPARISON: 02/25/2016 INDICATION: Pneumonia TECHNIQUE: Frontal and lateral views of the chest are obtained. FINDINGS: The heart size is normal. The pulmonary vasculature is normal. Right lower lobe infiltrate is present. Findings are worsening. IMPRESSION: 1. Worsening right lower lobe pneumonia. Continued follow-up is recommended.
[2016-02-26] MEDS: POLYETHYLENE GLYCOL 3350 17 GM POWD.PACK PO SCH (12:00)
[2016-02-26] MEDS: QUEtiapine 200 MG TAB PO SCH ×2 (12:00→17:31)
--- NOTE | 2016-02-26 13:34 | P.PN ---
Subjective This is a 65-year-old female with history of multiple medical problems, patient is known to have history of bipolar disorder, schizoaffective disorder, hypertension, seizure disorder, prolapsed rectum, and since the patient was 1 years old, she developed a picture of severe encephalitis ,the patient went aphasic and has not been able to verbalize since. Patient remains at [facility]. On 02/21/2016, patient was brought into the ER with mostly complaints of shortness of breath. Chest x-ray upon presentation showed extensive pneumonia involving the right lung especially the right lobe and the right lower lobe. No documented history of aspiration but the patient eats and Gobbles food down quite fast normally. considering this presentation, patient is not an ideal risk for aspiration pneumonia. She is seen again today 02/26/2016 in follow-up. She remains alert and active. She is maintaining good O2 saturations in the low 90s on room air. She has been afebrile. She remains on aspiration precautions. Her chest x-ray does show worsening infiltrate of the right lower lobe. She remains on Zosyn. Objective - Vital Signs Vital signs: Vital Signs Temp 97.8 F 02/26/16 07:00 Pulse 88 02/26/16 07:00 Resp 16 02/26/16 07:00 BP 132/71 02/26/16 07:00 Pulse Ox 92 L 02/26/16 07:56 Intake & Output 02/25/16 02/26/16 02/26/16 18:59 06:59 18:59 Other: Voiding Method Toilet Toilet # Voids 1 1 # Bowel Movements 1 - Exam GENERAL EXAM: Alert, active, comfortable in no apparent distress. Nonverbal. HEAD: Normocephalic. EYES: Normal reaction of pupils, equal size. NOSE: Clear with pink turbinates. THROAT: No erythema or exudates. NECK: No masses, no JVD. CHEST: No chest wall deformity. LUNGS: Equal air entry with no crackles, wheeze, rhonchi or dullness. CVS: S1 and S2 normal with no audible murmurs, regular rhythm. ABDOMEN: No hepatosplenomegaly, normal bowel sounds, no guarding or rigidity. Extremities: There is no significant peripheral edema. No clubbing, no cyanosis. Peripheral pulses are intact. - Labs CBC & Chem 7: 02/26/16 08:16 02/26/16 08:16 Labs: Abnormal Lab Results - Last 24 Hours (Table) 02/26/16 Range/Units 08:16 Chloride 110 H (98-107) mmol/L Carbon Dioxide 18 L (22-30) mmol/L BUN 24 H (7-17) mg/dL Glucose 100 H (74-99) mg/dL Microbiology - Last 24 Hours (Table) 02/21/16 14:54 Blood Culture - Preliminary Blood No Growth after 96 hours 02/21/16 14:54 Blood Culture - Preliminary Blood No Growth after 96 hours Assessment and Plan Plan: Impression: #1 Acute right lung pneumonia involving mostly the right middle lobe and right lower lobe. No significant improvement on today's chest x-ray. #2 Schizoaffective disorder. #3 Seizure disorder. #4 Hypertension. 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 Plan: The patient was seen and evaluated by Dr. Wise. Her chest x-ray was reviewed. No significant improvement in the right midlung. We will go ahead and add Ceftin 500 mg twice a day. Continue clindamycin. No signs of worsening hypoxia and she is still maintaining O2 saturations in the 90s on room air. We'll hold off on bronchoscopy for now. We'll continue with her current medications. She remains on aspiration precautions. We'll continue to follow.
[2016-02-26] MEDS: CEFUROXIME 250 MG TAB PO SCH ×2 (14:53→20:05)
[2016-02-26] MEDS: MONTELUKAST 10 MG TAB PO SCH (17:30)
[2016-02-26] MEDS: ATORVASTATIN 20 MG TAB PO SCH (20:04)
[2016-02-26] MEDS: QUEtiapine 400 MG TAB PO SCH (20:04)
[2016-02-26] MEDS: LITHIUM CARBONATE 150 MG CAP PO SCH (20:05)
[2016-02-27 01:02] VITALS: RESP 16
[2016-02-27] MEDS: IPRATROPIUM-ALBUTEROL 3 ML NEB INHALATION SCH ×3 (08:06→15:37)
[2016-02-27] MEDS: OXcarbazepine 300 MG TAB PO SCH (08:38)
[2016-02-27] MEDS: guaiFENesin 600 MG TABLET.ER PO SCH (08:38)
[2016-02-27] MEDS: CLINDAMYCIN 150 MG CAP PO SCH ×3 (08:38→17:10)
[2016-02-27] MEDS: FOLIC ACID-VIT B COMPLEX-VIT C 1 CAP PO SCH (08:39)
[2016-02-27] MEDS: LEVOTHYROXINE 25 MCG TAB PO SCH (08:40)
[2016-02-27] MEDS: LITHIUM CARBONATE 300 MG CAP PO SCH (08:40)
[2016-02-27] MEDS: PANTOPRAZOLE 40 MG TABLET PO SCH (08:40)
[2016-02-27] MEDS: METOPROLOL SUCCINATE (ER) 50 MG TAB.ER.24H PO SCH (08:40)
[2016-02-27] MEDS: SODIUM BICARBONATE TAB 650 MG TAB PO SCH (08:40)
[2016-02-27] MEDS: CEFUROXIME 250 MG TAB PO SCH ×2 (08:41→17:10)
[2016-02-27] MEDS: ENOXAPARIN 40 MG/0.4 ML SYRINGE SQ SCH (08:41)
[2016-02-27] MEDS: MULTIVITAMINS, THERA 1 EACH TAB PO SCH (08:41)
[2016-02-27] MEDS: LORazepam 0.5 MG TAB PO SCH ×2 (08:41→17:10)
--- NOTE | 2016-02-27 12:14 | PN ---
DATE OF SERVICE: 02/26/2016 PRESENTING COMPLAINT: Cough. INTERVAL HISTORY: This patient does not speak, presented with pneumonia. ( ), sitting up in a chair. REVIEW OF SYSTEMS: Cannot be done. Current medications include IV Ceftin. On examination, temperature 98.3, pulse 94, respirations 20, blood pressure 130/80, pulse ox 92% on room air. GENERAL APPEARANCE: Sitting up, comfortable. HEENT: Pupils equal. NECK: JVD not raised. RESPIRATORY: Respiratory effort increased. LUNGS: Improved air entry. CARDIOVASCULAR: First and second sounds normal. No edema. ABDOMEN: Soft, nontender. PSYCHIATRY: Unable to assess INVESTIGATIONS: White count 8.9. Chest x-ray shows infiltrate to be present, await further input from pulmonary.
[2016-02-27] MEDS: POLYETHYLENE GLYCOL 3350 17 GM POWD.PACK PO SCH (12:39)
[2016-02-27] MEDS: QUEtiapine 200 MG TAB PO SCH ×2 (12:39→17:10)
--- NOTE | 2016-02-27 13:17 | P.PN ---
Subjective Principal diagnosis: Acute right sided pneumonia, most likely aspiration in nature. this is a 65-year-old female with history of multiple medical problems, patient is known to have history of bipolar disorder, schizoaffective disorder, hypertension, seizure disorder, prolapsed rectum, and since the patient was 1 years old, she developed a picture of severe encephalitis ,the patient went aphasic and has not been able to verbalize since. Patient remains at [facility]. On 02/21/2016, patient was brought into the ER with mostly complaints of shortness of breath. Chest x-ray upon presentation showed extensive pneumonia involving the right lung especially the right lobe and the right lower lobe. No documented history of aspiration but the patient eats and Gobbles food down quite fast normally. considering this presentation, patient is not an ideal risk for aspiration pneumonia. Swallow evaluation is spending, in the meantime patient seems to be on Broad-spectrum antibiotics empirically for pneumonia. Again not much history could be obtained from the patient since the patient is aphasic and she seems to be confused. Patient was reevaluated today on 02/24/2016, seems to be about the same. No cough no wheezing no shortness of breath, and her physical findings are practically about the same. Patient is being evaluated by speech therapy for swallow evaluation. Results of that are pending. Her labs showed the PEEP cigar of 10 hemoglobin of 10.2 her electrolytes showed a hyperchloremic metabolic acidosis/non-anion gap metabolic acidosis. She is seen again today 02/26/2016 in follow-up. She remains alert and active. She is maintaining good O2 saturations in the low 90s on room air. She has been afebrile. She remains on aspiration precautions. Her chest x-ray read by the radiologist as getting worse, however I totally disagree, and there is definite improvement in the right lower lobe pneumonia compared to the admission chest x-ray. Seen again on 02/27/2016, patient is basically about the same, and not much history could be obtained from the patient. She is now on clindamycin and Ceftin, orally, and I believe we could consider discharging the patient back to her facility today or tomorrow. Objective - Vital Signs Vital signs: Vital Signs Temp 97.8 F 02/27/16 07:00 Pulse 85 02/27/16 07:00 Resp 16 02/27/16 07:00 BP 135/67 02/27/16 07:00 Pulse Ox 92 L 02/27/16 08:06 Intake & Output 02/26/16 02/27/16 02/27/16 18:59 06:59 18:59 Intake Total 400 100 200 Balance 400 100 200 Intake: Oral 400 100 200 Other: Voiding Method Toilet # Voids 1 2 # Bowel Movements 1 - Exam physical examination revealed a 65-year-old female in no distress. HEENT: Neck supple no neck masses no JVD no thyromegaly. Chest: Clear, no crackles or rhonchi or wheezes bilaterally. Cardiac: Normal S1 and S2, no gallops. Abdomen: Soft nontender thyromegaly no rebound Extremities: No clubbing edema or cyanosis. Neurologic: Patient is awake, confused, aphasic, extremely difficult to communicate with the patient. - Labs CBC & Chem 7: 02/26/16 08:16 02/26/16 08:16 Labs: Microbiology - Last 24 Hours (Table) 02/21/16 14:54 Blood Culture - Preliminary Blood No Growth after 120 hours 02/21/16 14:54 Blood Culture - Preliminary Blood No Growth after 120 hours Assessment and Plan Plan: #1 Acute right lung pneumonia involving mostly the right middle lobe and right lower lobe. No significant improvement on today's chest x-ray. #2 Schizoaffective disorder. #3 Seizure disorder. #4 Hypertension. 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 Recommendation: Consider discharge planning today or in a.m. to ECF. Continue patient on clindamycin and Ceftin for 5 more days. Continue precautions for aspiration. Again the chest x-ray I reviewed from yesterday is definitely much improved compared to the chest x-ray on admission, and I disagree with reading as per the radiologist. Time with Patient: Less than 30
[2016-02-27 14:44] VITALS: BP 146/71; PULSE 92; TEMP 97.2
[2016-02-27] MEDS: MONTELUKAST 10 MG TAB PO SCH (17:10)
--- NOTE | 2016-02-29 10:30 | PN ---
ADDENDUM: DATE OF SERVICE: 02/26/2016 ASSESSMENT: 1. Multilobar pneumonia, suspect gram-negative organism, slow to respond on presentation, aspiration still possible. 2. Chronic tardive dyskinesia. 3. Gastroesophageal reflux disease. 4. Hypertension. 5. Chronic seizure disorder. 6. Kidney stones, asymptomatic. 7. Dysarthria, chronic. 8. Schizophrenic disorder, chronic. PLAN: Continue current medication and treatment plan. Follow with Pulmonary.
--- NOTE | 2016-02-29 23:05 | DS ---
DATE OF ADMISSION: 02/21/2016 DATE OF DISCHARGE: 02/27/2016 FINAL DIAGNOSES: 1. Multi-lobar pneumonia; suspect Gram-negative organism; slow to respond initially. Suspect aspiration. 2. Chronic tardive dyskinesia. 3. Gastroesophageal reflux disease. 4. Hypertension. 5. Chronic seizure disorder. 6. Kidney stones, asymptomatic. 7. Dysarthria, chronic, long-standing. 8. Schizophrenic disorder, chronic. HOSPITAL COURSE: Patient does not speak much. She presented with bilateral pneumonia suspected to be aspiration. On examination, lungs are improved, clear. I discussed with Dr. Wise on day of discharge. He did compare the x-rays and said it is much better. Patient is actually doing much better. Pulse ox is 94% on room air. DISCHARGE MEDICATIONS: 1. Prilosec 20 mg p.o. with breakfast. 2. Seroquel 200 p.o. b.i.d. at noon and 4 p.m. 3. Seroquel 400 mg p.o. at bedtime. 4. Multivitamin 1 tablet p.o. daily. 5. Lipitor 20 mg p.o. at bedtime. 6. Vitamin D3 1000 units p.o. daily. 7. Gavilax 17 grams p.o. daily. 8. Probiotic 2 capsules p.o. daily at noon. 9. Ativan 0.5 mg p.o. b.i.d. at 8 a.m. and 4 p.m.; 0.5 mg p.o. at bedtime. 10. Synthroid 25 mcg p.o. daily. 11. Linzess 145 mcg p.o. daily. 12. [place] 150 mg p.o. at bedtime; 300 mg p.o. daily. 13. Toprol XL 50 mg p.o. daily. 14. Sinemet 10 mg p.o. daily. 15. Trileptal 900 mg p.o. b.i.d. 16. Renal Caps 1 capsule p.o. daily. 17. Ceftin 500 mg p.o. b.i.d.; 10 capsules. 18. Clindamycin 300 mg p.o. q.i.d.; 20 capsules. 19. Sodium bicarbonate 650 mg p.o. b.i.d.; 20 capsules. DISPOSITION: AFC. Follow up with Dr. Romero in 3 days.
== END 2016-02-27 18:10 | disposition home or self-care (01) | DRG 178 ==
LOC: EC 11:53 → 4MS4W 13:57
PROVIDERS: ADMIT Hospitalist; ATTEND Hospitalist
DX: J69.0 Pneumonitis due to inhalation of food and vomit (principal); E87.2 Acidosis; F84.0 Autistic disorder; J15.6 Pneumonia due to other Gram-negative bacteria; E87.8 Other disorders of electrolyte and fluid balance, not elsewhere classified; F25.0 Schizoaffective disorder, bipolar type; G24.01 Drug induced subacute dyskinesia; G40.909 Epilepsy, unspecified, not intractable, without status epilepticus; I10 Essential (primary) hypertension; K21.9 Gastro-esophageal reflux disease without esophagitis; N20.0 Calculus of kidney; R09.02 Hypoxemia; F31.9 Bipolar disorder, unspecified; K62.3 Rectal prolapse; Z91.19 Patient's noncompliance with other medical treatment and regimen; Z79.899 Other long term (current) drug therapy; Z88.1 Allergy status to other antibiotic agents; Z88.0 Allergy status to penicillin; Z88.8 Allergy status to other drugs, medicaments and biological substances
CPT/HCPCS: 71010; 71020; 80048; 80053; 82550; 82553; 83605; 83735; 83880; 84484; 85025; 85610; 85730; 87040; 93005; 94760; 99285

== ENCOUNTER 2018-01-12 09:19 | Emergency (ER) | payer MEDICARE, OTHER ==
[2018-01-12 09:33] VITALS: RESP 18; TEMP 97.7
[2018-01-12] MEDS ORDERED: SODIUM CHLORIDE 0.9% 1,000 ML IV STA (09:45)
[2018-01-12] MEDS ORDERED: LORazepam 2 MG/ML INJ IV STA (09:45)
--- NOTE | 2018-01-12 10:07 | ED ---
General Adult HPI <Yehuda Carrera - Last Filed: 01/12/18 12:47> - General Source: patient, RN notes reviewed Mode of arrival: ambulatory <Kristian Lane - Last Filed: 01/12/18 14:06> - General Chief complaint: Abdominal Pain Stated complaint: Constipation Time Seen by Provider: 01/12/18 09:37 - History of Present Illness Initial comments: Patient's a 67-year-old female presenting to the emergency room today with her care worker with chief complaint of no bowel movement over the last 9 days. Patient history provided by caregiver stating that last normal bowel movement was on January 04. States that she does usually take laxatives. States over the last month she was taken off laxative because she was having diarrhea. States she had a hard bowel movement on January 04. States laxatives were restarted but is only had a small bowel movement on January 08 4 days ago. States that she did give milk of molasses last night as was told by the doctor. Was told that if patient did not have bowel movement come here to the emergency room. Caregiver states appetites been well. States that she's been acting like her normal self. Denies any fevers. Denies any other complaints. ( Kristian Lane) - Related Data Home Medications Medication Instructions Recorded Confirmed Omeprazole [PriLOSEC] 20 mg PO AC-BRKFST 02/19/14 02/21/16 QUEtiapine [SEROquel] 200 mg PO BID@1200,1600 02/19/14 02/21/16 QUEtiapine [SEROquel] 400 mg PO HS 02/19/14 02/21/16 Theratab (Multivitamin) 1 tab PO DAILY@0800 02/19/14 02/21/16 Atorvastatin [Lipitor] 20 mg PO HS 02/21/16 02/21/16 Cholecalciferol [Vitamin D3] 1,000 unit PO DAILY@0800 02/21/16 02/21/16 Gavilax Powder 17 gram PO DAILY@1200 02/21/16 02/21/16 L.acidoph,Paracasei, B.lactis 2 cap PO DAILY@1200 02/21/16 02/21/16 [Probiotic] LORazepam [Ativan] 0.5 mg PO BID@0800,1600 02/21/16 02/21/16 LORazepam [Ativan] 0.5 mg PO HS 02/21/16 02/21/16 Levothyroxine Sodium [Synthroid] 25 mcg PO DAILY@0700 02/21/16 02/21/16 Linaclotide [Linzess] 145 mcg PO DAILY@0800 02/21/16 02/21/16 [place] Carbonate 150 mg PO HS 02/21/16 02/21/16 [place] Carbonate 300 mg PO QAM 02/21/16 02/21/16 Metoprolol Succinate [Toprol XL] 50 mg PO DAILY@0800 02/21/16 02/21/16 Montelukast [Singulair] 10 mg PO DAILY@1600 02/21/16 02/21/16 OXcarbazepine [Trileptal] 900 mg PO BID 02/21/16 02/21/16 Renal Caps 1 cap PO DAILY@0700 02/21/16 02/21/16 Previous Rx's Medication Instructions Recorded Cefuroxime Axetil [Ceftin] 500 mg PO BID #10 tab 02/27/16 Clindamycin [Cleocin] 300 mg PO QID #20 cap 02/27/16 Sodium Bicarbonate Tab 650 mg PO BID #20 tab 02/27/16 Allergies Allergy/AdvReac Type Severity Reaction Status Date / Time lamotrigine [From Lamictal] Allergy Unknown Verified 01/31/17 13:34 amoxicillin trihydrate AdvReac Unknown Verified 01/31/17 13:34 [From Augmentin] benztropine mesylate AdvReac Unknown Verified 01/31/17 13:34 [From Cogentin] levofloxacin [From Levaquin] AdvReac Unknown Verified 01/31/17 13:34 potassium clavulanate AdvReac Unknown Verified 01/31/17 13:34 [From Augmentin] Review of Systems ROS Other: All systems not noted in ROS Statement are negative. <Yehuda Carrera - Last Filed: 01/12/18 12:47> ROS Other: All systems not noted in ROS Statement are negative. <Kristian Lane - Last Filed: 01/12/18 14:06> ROS Statement: Those systems with pertinent positive or pertinent negative responses have been documented in the HPI. Past Medical History Past Medical History: GERD/Reflux, Hypertension, Seizure Disorder Additional Past Medical History / Comment(s): prolapsed rectum, kidney stone, frequent ear infections, bowel obstructions, pancreatitis, scarlet fever, tardive dyskinesia History of Any Multi-Drug Resistant Organisms: None Reported Past Surgical History: Bladder Surgery, Bowel Resection, Cholecystectomy Past Anesthesia/Blood Transfusion Reactions: No Reported Reaction Past Psychological History: No Psychological Hx Reported, Bipolar, Schizoaffective Disorder Smoking Status: Never smoker Past Alcohol Use History: None Reported Past Drug Use History: None Reported - Past Family History Father Family Medical History: Unable to Obtain Mother Family Medical History: Unable to Obtain <Kristian Lane - Last Filed: 01/12/18 14:06> General Exam <Yehuda Carrera - Last Filed: 01/12/18 12:47> <Kristian Lane - Last Filed: 01/12/18 14:06> - General Exam Comments Initial Comments: General: The patient is awake and alert, in no distress. Anxious. Neck: The neck is supple, there is no tenderness or JVD. Cardiovascular: There is a regular rate and rhythm. No murmur, rub or gallop is appreciated. Respiratory: Lungs are clear to auscultation, respirations are non-labored, breath sounds are equal. No wheezes, stridor, rales, or rhonchi. Gastrointestinal: Soft on palpation. Musculoskeletal: Normal ROM, no tenderness. Strength 5/5. Sensation intact. Pulses equal bilaterally 2+. Neurological: A&O x 3. CN II-XII intact, There are no obvious motor or sensory deficits. Coordination appears grossly intact. Speech is normal. Skin: Skin is warm and dry and no rashes or lesions are noted. . (Kristian Lane) Course <Yehuda Carrera - Last Filed: 01/12/18 12:47> <Kristian Lane - Last Filed: 01/12/18 14:06> Vital Signs 01/12/18 09:29 Temperature 97.7 F Pulse Rate 93 Respiratory 18 Rate Blood Pressure 163/92 O2 Sat by Pulse 97 Oximetry - Reevaluation(s) Reevaluation #1: 01/12/18 12:47 PA supervision: I personally did evaluate the patient including review of all imaging and x-rays. Patient does demonstrate evidence of constipation I do agree with the assessment and plan. (Yehuda Carrera) Medical Decision Making - Lab Data Result diagrams: 01/12/18 10:35 12/08/18 10:35 <DeandreYehuda - Last Filed: 01/12/18 12:47> - Lab Data Result diagrams: 01/12/18 10:35 01/12/18 10:35 <Kristian Lane - Last Filed: 01/12/18 14:06> - Medical Decision Making Patient reexamined at this time shows no signs of distress. Patient's labs were reviewed. It was a difficult IV start and possibility of blood being hemolyzed. Her potassium is 5.7. EKG was obtained shows no elevated peak T's or widened QRS. Results of the blood work were discussed with the patient in her care provider at bedside patient's x-ray was reviewed does show moderate amount of stool no sign of an obstruction. Patient's abdomen soft. She was given enema. Was able to have large bowel movement here in the emergency room. At this time patient will be discharged home to follow up and she has an appointment with the family doctor in 2 days. Advised return if any symptoms increase or worsen or for any other concerns. (Kristian Lane) - Lab Data Lab Results 01/12/18 01/12/18 01/12/18 Range/Units 10:30 10:35 10:35 WBC 3.8 (3.8-10.6) k/uL RBC 4.44 (3.80-5.40) m/uL Hgb 13.3 (11.4-16.0) gm/dL Hct 40.9 (34.0-46.0) % MCV 92.1 (80.0-100.0) fL MCH 30.0 (25.0-35.0) pg MCHC 32.6 (31.0-37.0) g/dL RDW 13.2 (11.5-15.5) % Plt Count 242 (150-450) k/uL Neutrophils % 62 % Lymphocytes % 24 % Monocytes % 7 % Eosinophils % 3 % Basophils % 1 % Neutrophils # 2.3 (1.3-7.7) k/uL Lymphocytes # 0.9 L (1.0-4.8) k/uL Monocytes # 0.3 (0-1.0) k/uL Eosinophils # 0.1 (0-0.7) k/uL Basophils # 0.0 (0-0.2) k/uL Sodium 140 (137-145) mmol/L Potassium 5.7 H (3.5-5.1) mmol/L Chloride 110 H (98-107) mmol/L Carbon Dioxide 20 L (22-30) mmol/L Anion Gap 10 mmol/L BUN 22 H (7-17) mg/dL Creatinine 0.91 (0.52-1.04) mg/dL Est GFR (CKD-EPI)AfAm 74 (>60 ml/min/1.73 sqM) Est GFR (CKD-EPI)NonAf 65 (>60 ml/min/1.73 sqM) Glucose 97 (74-99) mg/dL Calcium 10.1 (8.4-10.2) mg/dL Total Bilirubin 0.5 (0.2-1.3) mg/dL AST 45 H (14-36) U/L ALT 21 (9-52) U/L Alkaline Phosphatase 164 H (38-126) U/L Total Protein 7.8 (6.3-8.2) g/dL Albumin 4.6 (3.5-5.0) g/dL Amylase 89 (30-110) U/L Lipase 265 (23-300) U/L Urine Color Light Yellow Urine Appearance Clear (Clear) Urine pH 6.5 (5.0-8.0) Ur Specific [place] 1.007 (1.001-1.035) Urine Protein Negative (Negative) Urine Glucose (UA) Negative (Negative) Urine Ketones Negative (Negative) Urine Blood Negative (Negative) Urine Nitrite Negative (Negative) Urine Bilirubin Negative (Negative) Urine Urobilinogen <2.0 (<2.0) mg/dL Ur Leukocyte Esterase Negative (Negative) Disposition <Yehuda Carrera - Last Filed: 01/12/18 12:47> Is patient prescribed a controlled substance at d/c from ED?: No Time of Disposition: 14:06 <[address] - Last Filed: 01/12/18 14:06> Clinical Impression: Abdominal pain Disposition: HOME SELF-CARE Condition: Good Instructions: Constipation (ED) Additional Instructions: Please use medication as discussed. Please follow-up with family doctor in the next 2 days of symptoms have not improved. Please return to emergency room if the symptoms increase or worsen or for any other concerns. Referrals: Dar Romo MD [Primary Care Provider] - 1-2 days
[2018-01-12] MEDS ORDERED: LORazepam 2 MG/ML INJ IM STA (10:42)
[2018-01-12 10:54] LABS: Appearance,Urine Clear (Clear); Bilirubin,Urine Negative (Negative); Blood,Urine Negative (Negative); Color,Urine Light Yellow; Glucose,Urine (UA) Negative (Negative); Ketones,Urine Negative (Negative); Leukocyte Esterase,Urine Negative (Negative); Nitrite,Urine Negative (Negative); PH, Urine 6.5 (5.0-8.0); Protein,Urine Negative (Negative); Specific Gravity,Urine 1.007 (1.001-1.035); Urobilinogen,Urine <2.0 mg/dL (<2.0)
[2018-01-12 11:02] LABS: Basophils % (A) 1 %; Eosinophils # (A) 0.1 k/uL (0-0.7); Eosinophils % (A) 3 %; HCT 40.9 % (34.0-46.0); HGB 13.3 gm/dL (11.4-16.0); Lymphocytes # (A) 0.9 k/uL (1.0-4.8); Lymphocytes % (A) 24 %; MCHC 32.6 g/dL (31.0-37.0); MCV 92.1 fL (80.0-100.0); Mean Platelet Volume 7.4; Monocytes # (A) 0.3 k/uL (0-1.0); Monocytes % (A) 7 %; Neutrophils # (A) 2.3 k/uL (1.3-7.7); Neutrophils % (A) 62 %; Platelet Count 242 k/uL (150-450); RBC 4.44 m/uL (3.80-5.40); RDW 13.2 % (11.5-15.5); WBC 3.8 k/uL (3.8-10.6)
[2018-01-12 11:11] LABS: Albumin 4.6 g/dL (3.5-5.0); Calcium 10.1 mg/dL (8.4-10.2); Potassium 5.7 mmol/L (3.5-5.1); Total Bilirubin 0.5 mg/dL (0.2-1.3); Total Protein 7.8 g/dL (6.3-8.2)
--- NOTE | 2018-01-12 12:38 | XR ---
EXAMINATION TYPE: XR KUB , 2 VIEWS DATE OF EXAM ORDERED: 01/12/2018 HISTORY: abdominal pain. COMPARISON: Previous study dated 02/19/2014. FINDINGS: Abdominal gas pattern is within normal limits. There is no evidence of obstruction or alex s free air. There are multiple surgical clips within the pelvis. There are phleboliths within the pel vis. IMPRESSION: NO DEFINITE ACUTE INTRA-ABDOMINAL ABNORMALITY.
[2018-01-12 14:26] VITALS: BP 140/76; PULSE 84
== END 2018-01-12 14:30 | disposition home or self-care (01) ==
LOC: EC 09:19
DX: R10.9 Unspecified abdominal pain (principal); I10 Essential (primary) hypertension; G40.909 Epilepsy, unspecified, not intractable, without status epilepticus; K21.9 Gastro-esophageal reflux disease without esophagitis; F31.9 Bipolar disorder, unspecified; Z88.0 Allergy status to penicillin; Z88.1 Allergy status to other antibiotic agents; Z88.8 Allergy status to other drugs, medicaments and biological substances; Z79.899 Other long term (current) drug therapy; Z87.19 Personal history of other diseases of the digestive system; Z90.49 Acquired absence of other specified parts of digestive tract; Z53.8 Procedure and treatment not carried out for other reasons
CPT/HCPCS: 36415; 93005; 80053; 82150; 83690; 85025; 81003; 74018; 99284; 96372; J2060